=== PATIENT | male | born 1985 | race Caucasian/White ===

== ENCOUNTER 2017-09-07 09:58 | Emergency (ER) | payer SELFPAY ==
[2017-09-07] MEDS ORDERED: Sodium Chloride 0.9% 10 ML Syringe FLUSH PRN (10:21)
[2017-09-07] MEDS ORDERED: Sodium Chloride 0.9% 1,000 ML IV SCH (10:30)
--- NOTE | 2017-09-07 11:34 | EDM.PDOCBH ---
ED HPI GENERAL MEDICAL PROBLEM - General Chief Complaint: Behavioral/Psych Stated Complaint: MEDICAL CLEARANCE Time Seen by Provider: 09/07/17 10:18 Source of Information: Reports: Police History Limitations: Reports: Altered Mental Status - History of Present Illness INITIAL COMMENTS - FREE TEXT/NARRATIVE: The patient was found in a car with some alcohol and a meth pipe. Initially he was combative and kicked an officer. He was brought here and he was lethargic and needed to be woken up to answer some questions. He was confused. He could not answer any questions appropriately. Onset: Gradual Improves with: Reports: None Worsens with: Reports: None Associated Symptoms: Reports: No Other Symptoms - Related Data Allergies Allergy/AdvReac Type Severity Reaction Status Date / Time No Known Allergies Allergy Verified 09/07/17 10:07 Home Meds: Home Meds . [No Known Home Meds] 09/07/17 [History] Past Medical History - Past Health History Medical/Surgical History: Denies Medical/Surgical History - Infectious Disease History Other Infectious Disease History: unable to obtain Social & Family History - Tobacco Use Smoking Status *Q: Unknown Ever Smoked Second Hand Smoke Exposure: Yes - Caffeine Use Caffeine Use: Reports: None - Recreational Drug Use Recreational Drug Use: Yes Drug Use in Last 12 Months: Yes Recreational Drug Type: Reports: Methamphetamine Recreational Drug Use Frequency: Patient Refuses To Answer ED ROS GENERAL - Review of Systems Review Of Systems: Unable To Obtain ED EXAM, BEHAVIORAL HEALTH - Physical Exam Exam: See Below Exam Limited By: Altered Mental Status General Appearance: Lethargic Ears: Normal External Exam Nose: Normal Inspection Head: Atraumatic, Normocephalic Neck: Normal Inspection Respiratory/Chest: No Respiratory Distress, Lungs Clear, Normal Breath Sounds Cardiovascular: Regular Rate, Rhythm, No Edema, No Murmur GI/Abdominal: Soft, Non-Tender, No Organomegaly, No Mass Back Exam: Normal Inspection Extremities: Normal Inspection COURSE, BEHAVIORAL HEALTH COMP - Course Vital Signs: Last Vital Signs Temp 98.4 F 09/07/17 10:00 Pulse 84 09/07/17 10:00 Resp 16 09/07/17 10:00 BP 130/80 09/07/17 10:00 Pulse Ox 100 09/07/17 10:00 Orders, Labs, Meds: Active Orders 24 hr Category Date Time Status Cardiac Monitoring [RC] . DIRECTED Care 09/07/17 10:21 Active Peripheral IV Care [RC] . DIRECTED Care 09/07/17 10:22 Active Sodium Chloride 0.9% [Normal Saline] 1,000 ml Med 09/07/17 10:30 Active IV .BOLUS Sodium Chloride 0.9% [Saline Flush] Med 09/07/17 10:21 Active 10 ml FLUSH ASDIRECTED PRN Peripheral IV Insertion Adult [OM.PC] Stat Oth 09/07/17 10:21 Ordered Medication Orders Sodium Chloride (Normal Saline) 1,000 mls @ 1,000 mls/hr IV .BOLUS ROSA Last Admin: 09/07/17 10:37 Dose: 1,000 mls/hr Sodium Chloride (Saline Flush) 10 ml FLUSH ASDIRECTED PRN PRN Reason: Keep Vein Open Last Admin: 09/07/17 10:38 Dose: 10 ml Laboratory Tests 09/07/17 09/07/17 09/07/17 Range/Units 10:30 10:30 11:30 WBC 9.30 H (4.23-9.07) K/mm3 RBC 5.01 (4.63-6.08) M/mm3 Hgb 15.7 (13.7-17.5) gm/L Hct 45.3 (40.1-51.0) % MCV 90.4 (79.0-92.2) fl MCH 31.3 (25.7-32.2) pg MCHC 34.7 (32.2-35.5) g/dl RDW Std Deviation 42.1 (35.1-43.9) fL Plt Count 262 (163-337) K/mm3 MPV 10.0 (9.4-12.3) fl Neut % (Auto) 57.6 (34.0-67.9) % Lymph % (Auto) 24.9 (21.8-53.1) % Person % (Auto) 16.2 H (5.3-12.2) % Eos % (Auto) 1.0 (0.8-7.0) Baso % (Auto) 0.2 (0.1-1.2) % Neut # (Auto) 5.35 (1.78-5.38) K/mm3 Lymph # (Auto) 2.32 (1.32-3.57) K/mm3 Person # (Auto) 1.51 H (0.30-0.82) K/mm3 Eos # (Auto) 0.09 (0.04-0.54) K/mm3 Baso # (Auto) 0.02 (0.01-0.08) K/mm3 Manual Slide Review Normal smear Sodium 142 (136-145) mEq/L Potassium 4.1 (3.5-5.1) mEq/L Chloride 106 (98-107) mEq/L Carbon Dioxide 27 (21-32) mEq/L Anion Gap 13.1 (5-15) BUN 12 (7-18) mg/dL Creatinine 0.8 (0.7-1.3) mg/dL Est Cr Clr Drug Dosing 142.49 mL/min Estimated GFR (MDRD) > 60 (>60) mL/min BUN/Creatinine Ratio 15.0 (14-18) Glucose 86 (74-106) mg/dL Calcium 9.2 (8.5-10.1) mg/dL Total Bilirubin 1.0 (0.2-1.0) mg/dL AST 41 H (15-37) U/L ALT 108 H (16-63) U/L Alkaline Phosphatase 71 (46-116) U/L Total Protein 7.3 (6.4-8.2) g/dl Albumin 3.8 (3.4-5.0) g/dl Globulin 3.5 gm/dL Albumin/Globulin Ratio 1.1 (1-2) Urine Opiates Screen Negative (NEGATIVE) Ur Buprenorphine Scrn Negative (NEGATIVE) Ur Oxycodone Screen Negative (NEGATIVE) Urine Methadone Screen Negative (NEGATIVE) Ur Propoxyphene Screen Negative (NEGATIVE) Ur Barbiturates Screen Negative (NEGATIVE) Ur Tricyclics Screen Negative (NEGATIVE) Ur Phencyclidine Scrn Negative (NEGATIVE) Ur Amphetamine Screen Presumptive positive H (NEGATIVE) U Methamphetamines Scrn Presumptive positive H (NEGATIVE) U Benzodiazepines Scrn Presumptive positive H (NEGATIVE) U Cocaine Metab Screen Negative (NEGATIVE) U Marijuana (THC) Screen Negative (NEGATIVE) Ethyl Alcohol 0.00 (0.00) gm% Medications Generic Name Dose Route Start Last Admin Trade Name Freq PRN Reason Stop Dose Admin Sodium Chloride 1,000 mls @ 1,000 mls/hr 09/07/17 10:30 09/07/17 10:37 Normal Saline IV 1,000 mls/hr .BOLUS ROSA Administration Sodium Chloride 10 ml 09/07/17 10:21 09/07/17 10:38 Saline Flush FLUSH 10 ml ASDIRECTED PRN Administration Keep Vein Open Re-Assessment/Re-Exam: I ordered an IV NS 1L bolus, labs and UDS. His WBC was slightly elevated at 9.3. His AST was elevated at 41. His ALT was elevated at 108. His ETOH was negative. His UDS was presumptive positive for benzos, meth and amphetamines. A meth pipe and benzos were found in the car. He is still confused when I ask him some questions. I will discharge him to police custody. Departure - Departure Time of Disposition: 12:30 Disposition: Home, Self-Care 01 Condition: Good Clinical Impression: Drug abuse, Methamphetamine abuse, Benzodiazepine abuse - Discharge Information Referrals: PCP,None [Primary Care Provider] - Forms: ED Department Discharge Additional Instructions: A medical screening exam was done and you are medically cleared to go to the [facility]. - My Orders Last 24 Hours: My Active Orders 09/07/17 10:21 Cardiac Monitoring [RC] . DIRECTED Sodium Chloride 0.9% [Saline Flush] 10 ml FLUSH ASDIRECTED PRN Peripheral IV Insertion Adult [OM.PC] Stat 09/07/17 10:22 Peripheral IV Care [RC] . DIRECTED 09/07/17 10:30 Sodium Chloride 0.9% [Normal Saline] 1,000 ml IV .BOLUS - Assessment/Plan Last 24 Hours: My Active Orders 09/07/17 10:21 Cardiac Monitoring [RC] . DIRECTED Sodium Chloride 0.9% [Saline Flush] 10 ml FLUSH ASDIRECTED PRN Peripheral IV Insertion Adult [OM.PC] Stat 09/07/17 10:22 Peripheral IV Care [RC] . DIRECTED 09/07/17 10:30 Sodium Chloride 0.9% [Normal Saline] 1,000 ml IV .BOLUS
== END 2017-09-07 12:53 | disposition home or self-care (01) ==
LOC: JD.ED 09:58
DX: F19.10 Other psychoactive substance abuse, uncomplicated (principal); F15.10 Other stimulant abuse, uncomplicated; Z77.22 Contact with and (suspected) exposure to environmental tobacco smoke (acute) (chronic)
CPT/HCPCS: 36415; 80053; 80306; 85025; 96360; 99284; G0480; J7040; J7050; P9612